=== PATIENT | male | born 1950 | race Caucasian/White ===

== ENCOUNTER → 2024-11-05 | Outpatient (CLI) | payer MEDICARE, SELFPAY ==
--- NOTE | 2024-11-05 10:07 | ART_ITS ---
Reason For Study Reason For Study: Claudication Procedure A bilateral lower extremity continuous wave Doppler with analog waveform analysis,segmental pressures,and ankle brachial indexes without exercise. Left Segmental Pressures Left brachial= 138mmHg. Left high thigh = 145mmHg. Left low thigh = 114mmHg. Left calf = 83mmHg. Left posterior tibial artery = 73mmHg. Left dorsalis pedis artery = 68mmHg. Left digit = 40 mmHg. The left dorsalis pedis waveforms are biphasic. The left posterior tibial artery waveforms are monophasic. Right Segmental Pressures Right brachial= 148mmHg. Right high thigh = 152mmHg. Right low thigh = 110mmHg. Right calf = 89mmHg. Right posterior tibial artery = 80mmHg. Right dorsalis pedis artery = 77mmHg. Right digit = 52 mmHg. The right dorsalis pedis waveforms are monophasic. The right posterior tibial artery waveforms are biphasic. Indices The right ankle brachial index by the dorsalis pedis is 0.52. The right ankle brachial index by the posterior tibial artery is 0.54. The right digital-brachial index is 0.35. The left ankle brachial index by the dorsalis pedis is 0.46. The left ankle brachial index by the posterior tibial artery is 0.49. The left digital-brachial index is 0.27. VL/Lower Ext Art Exam w/o Exercis Interpretation Summary Right ROBERTA 0.54, moderate arterial insufficiency. Doppler/PVR waveforms and segm ental pressures reveal proximal femoral, distal SFA/popliteal disease. Left ROBERTA 0.49, severe arterial insufficiency. Doppler/PVR waveforms and segment al pressures reveal aorto-iliac, proximal femoral, distal SFA/popliteal disease. Ordering Physician: Gina Yin Referring Physician: Gina Yin Performed By: JEANETH BAE T
== END | disposition home or self-care (01) ==
LOC: CVS 10:06
PROVIDERS: Referring Provider Physician Assistant; Visit Provider Physician Assistant
DX: I73.9 Peripheral vascular disease, unspecified (principal)
CPT/HCPCS: 93923; 93924